=== PATIENT | female | born 1955 | race Caucasian/White ===

== ENCOUNTER 2016-12-03 18:04 | Emergency (ER) | payer OTHER ==
[~2016-12-03] VITALS: Ht 167.6 cm; Wt 74.5 kg
[~2016-12-03 18:04] MED LIST: ADULT LOW DOSE81 M1 PO; COLACE100 MG PO; FLUOXETINE HCL20 MG PO; Feosol PO; LOPRESSOR12.5 MG PO; LOPRESSOR50 MG PO; MACROBID100 MG PO; NORCO 5/3251 TABLET PO; PERCOCET 5/31 TABLET PO; PriLOSEC PO
[2016-12-03 21:15] VITALS: BP 119/67
== END 2016-12-03 21:12 | disposition home or self-care (01) ==
LOC: EME 18:04
DX: S60.212A Contusion of left wrist, initial encounter (principal); S00.03XA Contusion of scalp, initial encounter; W01.190A Fall on same level from slipping, tripping and stumbling with subsequent striking against furniture, initial encounter; Z79.82 Long term (current) use of aspirin; Z91.81 History of falling
CPT/HCPCS: 70450; 73110; 93005; 99281; 99284